=== PATIENT | female | born 1955 | race Caucasian/White ===

== ENCOUNTER 2021-06-20 17:34 | Emergency (ER) | payer MEDICARE ==
[~2021-06-20] VITALS: Ht 152.4 cm; Wt 99.8 kg
[2021-06-20] MEDS ORDERED: ZITHROMAX250 MG PO (19:06)
[2021-06-20] MEDS ORDERED: TESSALON PERLE100 MG PO (19:06)
[2021-06-20 19:21] VITALS: BP 133/68
== END 2021-06-20 19:21 | disposition home or self-care (01) ==
LOC: FSED 17:47
DX: R05.9 Cough, unspecified (principal); J20.9 Acute bronchitis, unspecified; I10 Essential (primary) hypertension; E78.5 Hyperlipidemia, unspecified; F41.9 Anxiety disorder, unspecified
CPT/HCPCS: 71045; 83518; 87400; 99283

== ENCOUNTER 2022-03-10 14:34 | Emergency (ER) | payer MEDICARE, OTHER ==
[~2022-03-10] VITALS: Ht 152.4 cm; Wt 98.4 kg
[~2022-03-10 14:34] MED LIST: TESSALON PERLE100 MG PO; ZITHROMAX250 MG PO
[2022-03-10] MEDS ORDERED: CYCLOBENZAPRINE5 MG PO (16:17)
[2022-03-10] MEDS ORDERED: MELOXICAM7.5 MG PO (16:19)
== END 2022-03-10 16:29 | disposition home or self-care (01) ==
LOC: FSED 15:12
DX: M54.50 Low back pain, unspecified (principal); S33.5XXA Sprain of ligaments of lumbar spine, initial encounter; V43.52XA Car driver injured in collision with other type car in traffic accident, initial encounter; Y92.488 Other paved roadways as the place of occurrence of the external cause; I10 Essential (primary) hypertension; E78.5 Hyperlipidemia, unspecified
CPT/HCPCS: 72110; 99283